=== PATIENT | male | born 1940 | race Two or more races ===

== ENCOUNTER 2020-10-02 22:37 | Emergency (ER) | payer OTHER ==
[~2020-10-02] VITALS: Ht 154.9 cm; Wt 68.0 kg
--- NOTE | 2020-10-02 22:42 | NUR ---
PT [id number] FROM HOME C/O WITNESSED [employer] +HEAD INJ. PT DENIES KO. PT AAOX3, VSS, RESPIRATIONS EVEN AND UNLABORED ON RA W/ NAD NOTED. PT CONNECTED TO THE PARKER AND POX.
--- NOTE | 2020-10-03 00:11 | NUR ---
PT WILL BE PICKED UP BY FAMILY
[2020-10-03 00:45] VITALS: BP 141/99
== END 2020-10-03 00:46 | disposition home or self-care (01) ==
LOC: ER 22:38
DX: S00.01XA Abrasion of scalp, initial encounter (principal); I48.91 Unspecified atrial fibrillation; G20 Parkinson's disease; F02.80 Dementia in other diseases classified elsewhere, unspecified severity, without behavioral disturbance, psychotic disturbance, mood disturbance, and anxiety; Z86.73 Personal history of transient ischemic attack (TIA), and cerebral infarction without residual deficits; W18.39XA Other fall on same level, initial encounter; Y93.89 Activity, other specified; Y92.89 Other specified places as the place of occurrence of the external cause; Y99.8 Other external cause status
CPT/HCPCS: 70450-TC; 72125-TC

== ENCOUNTER 2021-06-22 11:28 | Emergency (ER) | payer OTHER ==
[~2021-06-22] VITALS: Ht 185.4 cm; Wt 79.4 kg
--- NOTE | 2021-06-22 11:34 | NUR ---
To ER bed 13, from home, hit head on the bed frame fell backward while getting up, -loc, oriented to name and place, changed into a gown, attached to monitor.
--- NOTE | 2021-06-22 12:03 | NUR ---
WAYNE [phone]
--- NOTE | 2021-06-22 13:00 | NUR ---
pt resting family at the bedside
--- NOTE | 2021-06-22 16:00 | NUR ---
PT. VERBALIZED UNDERSTANDING OF AFTERCARE INSTRUCTIONS.Patient discharged to home in stable condition. Written and verbal after care instructions given. Patient verbalizes understanding of instruction.
[2021-06-22 16:01] VITALS: BP 132/85
== END 2021-06-22 16:02 | disposition home or self-care (01) ==
LOC: ER 11:29
DX: S09.8XXA Other specified injuries of head, initial encounter (principal); I48.91 Unspecified atrial fibrillation; G20 Parkinson's disease; F02.80 Dementia in other diseases classified elsewhere, unspecified severity, without behavioral disturbance, psychotic disturbance, mood disturbance, and anxiety; Z86.73 Personal history of transient ischemic attack (TIA), and cerebral infarction without residual deficits; W18.09XA Striking against other object with subsequent fall, initial encounter; Y93.89 Activity, other specified; Y92.89 Other specified places as the place of occurrence of the external cause; Y99.8 Other external cause status
CPT/HCPCS: 70450-TC; 72170-TC